=== PATIENT | male | born 1970 ===

== ENCOUNTER 2016-10-09 16:53 | Emergency (ER) | payer BC, OTHER ==
--- NOTE | 2016-10-09 17:28 | C.PDOC ---
History Of Present Illness 46 year old patient presents to the ED complaining of dysuria for the last 2 days. Patient states his sexual partner was recently diagnosed with chlamydia and is concerned. Patient denies any fever, penile lesions, abdominal pain, hematuria, nausea, vomiting, flank pain or testicular pain. Time Seen by Provider: 10/09/16 17:11 Chief Complaint (Nursing): Male Genitourinary History Per: Patient History/Exam Limitations: no limitations Onset/Duration Of Symptoms: Days (2) Current Symptoms Are (Timing): Still Present Severity: Mild Pain Scale Rating Of: 3 Quality Of Discomfort: "Pain" Alleviating Factors: None Recent travel outside of the [place]: No Past Medical History Reviewed: Historical Data, Nursing Documentation, Vital Signs Vital Signs: Last Vital Signs Temp 98.8 F 10/09/16 18:04 Pulse 94 H 10/09/16 18:04 Resp 18 10/09/16 18:04 BP 166/89 H 10/09/16 18:04 Pulse Ox 97 10/09/16 19:47 Family History: States: No Known Family Hx - Social History Hx Alcohol Use: Yes Hx Substance Use: No - Immunization History Hx Tetanus Toxoid Vaccination: No Hx Influenza Vaccination: No Hx Pneumococcal Vaccination: No Review Of Systems Except As Marked, All Systems Reviewed And Found Negative. Constitutional: Negative for: Fever Gastrointestinal: Negative for: Nausea, Vomiting, Abdominal Pain Genitourinary: Positive for: Dysuria. Negative for: Hematuria, Penile Pain Musculoskeletal: Negative for: Other (flank pain) Skin: Negative for: Lesions Physical Exam - Physical Exam Appears: Non-toxic, No Acute Distress, Other (uncomfortable) Skin: Warm, Dry, No Rash Chest: Symmetrical Cardiovascular: Rhythm Regular (mildly tachycardic) Respiratory: Normal Breath Sounds, No Rales, No Rhonchi, No Wheezing Gastrointestinal/Abdominal: Soft, No Tenderness ED Course And Treatment O2 Sat by Pulse Oximetry: 97 (RA) Pulse Ox Interpretation: Normal Progress Note: Chlamydia sent. Urinalysis and urine culture sent. Rocephin and Zithromax given. Patient is discharged with Flagyl and instructed to follow up with PMD in 1-2 days or return if symptoms worsen. Disposition Counseled Patient/Family Regarding: Diagnosis, Need For Followup, Rx Given - Disposition Referrals: [facility] [Outside] Disposition: HOME/ ROUTINE Disposition Time: 17:45 Additional Instructions: FOLLOW UP WITH YOUR DOCTOR/CLINIC IN 1-2 DAYS USE MEDICATION TOMORROW AVOID SEX X 1 WEEK MAKE SURE YOUR PARTNER(S) ARE TREATED/TESTED RETURN TO ER IF SYMPTOMS WORSEN Prescriptions: metroNIDAZOLE [Flagyl] 2,000 mg PO ONCE #4 tab Instructions: Nonspecific Urethritis in Men (ED) Print Language: [place] - POA Present On Arrival: None - Clinical Impression Clinical Impression: Urethritis - Scribe Statement The provider has reviewed the documentation as recorded by the Cheynaneibdevyn Hooper Provider Attestation: All medical record entries made by the Leida were at my direction and personally dictated by me. I have reviewed the chart and agree that the record accurately reflects my personal performance of the history, physical exam, medical decision making, and the department course for this patient. I have also personally directed, reviewed, and agree with the discharge instructions and disposition.
[2016-10-09 17:38] LABS: RBC URINE 104 /hpf (0-3); URINE BACTERIA FEW (<OCC); URINE BILIRUBIN NEGATIVE (NEGATIVE); URINE COLOR Yellow (YELLOW); URINE GLUCOSE (UA) NORMAL (Normal); URINE KETONE NEGATIVE (NEGATIVE); URINE PROTEIN 2+ mg/dL (NEGATIVE); URINE UROBILINOGEN NORMAL mg/dL (0.2-1.0); WBC URINE 56 /hpf (0-5)
[2016-10-09 17:39] VITALS: BP 166/89; RESP 18; TEMP 98.8; O2SAT 97
[2016-10-09 17:39] LABS: URINE BLOOD 3+ (NEGATIVE); URINE LEUKOCYTE ESTERASE 3+ Leu/uL (Negative)
[2016-10-09] MEDS ORDERED: cefTRIAXone (Rocephin) 250 mg Inj IM STA (17:41)
[2016-10-09 18:05] VITALS: PULSE 94
== END 2016-10-09 18:04 | disposition home or self-care (01) ==
LOC: C.ER 16:53
DX: N34.2 Other urethritis (principal)